=== PATIENT | female | born 1940 | race Two or more races ===

== ENCOUNTER 2020-01-12 10:05 | Emergency (ER) | payer OTHER ==
[~2020-01-12] VITALS: Ht 167.6 cm; Wt 86.2 kg
[~2020-01-12 10:05] MED LIST: AMOX-CLAV 875-1 EACH PO; CARTIA XT180 MG PO; CLONAZEPAM1 MG PO; DOCUSATE SODIU100 MG PO; FERROUS GL PO; GABAPENTIN800 MG PO; GLUCOPHAGE XR500 MG PO; HUMALOG100 U/ML SQ; K-TAB10 MEQ PO; LANTUS SOLOSTAR3 ML SQ; LISINOPRIL40 MG PO; MAGNESIUM200 MG PO; NEURONTIN300 MG PO; NEXIUM 24HR20 M1 PO; PERCOCET 5-3251 EACH PO; PLAVIX75 MG PO; PRAVASTATIN SOD10 MG PO; [UNRECOGNIZED DRUG - OTHER] PO
== END 2020-01-12 16:40 | disposition home or self-care (01) ==
LOC: ER 10:05
DX: R53.1 Weakness (principal); M25.512 Pain in left shoulder; M25.511 Pain in right shoulder; M25.552 Pain in left hip; M25.551 Pain in right hip

== ENCOUNTER 2020-01-16 11:48 | Outpatient (CLI) | payer OTHER | END 2020-01-16 12:33 | disposition home or self-care (01) | LOC: RAD 11:48 | PROVIDERS: ATTEND Internal Medicine | DX: M15.0 Primary generalized (osteo)arthritis (principal) ==

== ENCOUNTER → 2020-01-29 | Outpatient (CLI) | payer OTHER | END | disposition home or self-care (01) | LOC: MRI 09:48 | PROVIDERS: ATTEND Physical Medicine & Rehabilitation | DX: M75.112 Incomplete rotator cuff tear or rupture of left shoulder, not specified as traumatic (principal); M75.111 Incomplete rotator cuff tear or rupture of right shoulder, not specified as traumatic | CPT/HCPCS: 73221 ==

== ENCOUNTER → 2020-02-29 | Outpatient (CLI) | payer OTHER | END | disposition home or self-care (01) | LOC: RAD 11:45 | PROVIDERS: ATTEND Physical Medicine & Rehabilitation | DX: M54.2 Cervicalgia (principal); M17.0 Bilateral primary osteoarthritis of knee; M16.0 Bilateral primary osteoarthritis of hip ==

== ENCOUNTER 2020-05-08 12:37 | Outpatient (CLI) | payer OTHER | END 2020-05-08 12:50 | disposition home or self-care (01) | LOC: MAMO-SONO 12:37 | PROVIDERS: ATTEND Surgery | DX: D24.2 Benign neoplasm of left breast (principal); D24.1 Benign neoplasm of right breast; Z12.31 Encounter for screening mammogram for malignant neoplasm of breast; N60.11 Diffuse cystic mastopathy of right breast; N60.12 Diffuse cystic mastopathy of left breast; S99.829A Other specified injuries of unspecified foot, initial encounter ==

== ENCOUNTER 2021-06-09 12:51 | Outpatient (CLI) | payer OTHER | END 2021-06-09 12:58 | disposition home or self-care (01) | LOC: SONOGRAMA 12:51 | DX: M72.2 Plantar fascial fibromatosis (principal); M19.90 Unspecified osteoarthritis, unspecified site ==

== ENCOUNTER 2021-12-31 15:05 | Outpatient (CLI) | payer OTHER | END 2021-12-31 15:09 | disposition home or self-care (01) | LOC: RAD 15:05 | PROVIDERS: ATTEND Internal Medicine | DX: J44.1 Chronic obstructive pulmonary disease with (acute) exacerbation (principal) ==

== ENCOUNTER 2022-02-09 07:07 | Outpatient (CLI) | payer OTHER | END 2022-02-09 07:08 | disposition home or self-care (01) | LOC: NUCLEAR 07:07 | PROVIDERS: ATTEND Internal Medicine Cardiovascular Disease | DX: I20.8 Other forms of angina pectoris (principal); E78.00 Pure hypercholesterolemia, unspecified; E11.9 Type 2 diabetes mellitus without complications; Z88.6 Allergy status to analgesic agent | CPT/HCPCS: 78452; 93017; A9500; J1250 ==

== ENCOUNTER → 2024-02-14 07:18 | Outpatient (CLI) | payer OTHER | END | disposition home or self-care (01) | LOC: NUCLEAR 07:00 | PROVIDERS: ATTEND Internal Medicine Cardiovascular Disease | DX: I20.89 Other forms of angina pectoris (principal) | CPT/HCPCS: 78452; 93017; A9500; J1250 ==

== ENCOUNTER → 2024-06-28 11:35 | Outpatient (CLI) | payer OTHER ==
[~2024-06-28 11:35] MED LIST changes: +ALDACTONE50 MG PO; +CLARITIN10 M1 PO; +GLUMETZA500 MG PO; +PRAVASTATIN SOD40 MG PO
== END | disposition home or self-care (01) ==
LOC: EKG 11:35
PROVIDERS: ATTEND Internal Medicine
DX: I10 Essential (primary) hypertension (principal)

== ENCOUNTER 2024-06-28 14:46 | Inpatient (IN) | payer OTHER ==
[~2024-06-28] VITALS: Ht 160 cm; Wt 86.2 kg
[~2024-06-28 14:46] MED LIST changes: -ALDACTONE50 MG PO; -CLARITIN10 M1 PO; -GLUMETZA500 MG PO; -PRAVASTATIN SOD40 MG PO
[2024-06-28 14:54] VITALS: BP 104/68
[2024-06-28] MEDS ORDERED: GLUMETZA500 MG PO (15:00)
[2024-06-28] MEDS ORDERED: PRAVASTATIN SOD40 MG PO (15:00)
[2024-06-28] MEDS ORDERED: ALDACTONE50 MG PO (15:00)
[2024-06-28] MEDS ORDERED: CLARITIN10 M1 PO (15:01)
[2024-06-28 15:14] LABS: RH POSITIVE
[2024-07-03] MEDS ORDERED: TRANEXAMIC ACID 100MG/1ML (1000MG) AMPUL IV ONE (10:21)
[2024-07-03] MEDS ORDERED: CEFAZOLIN SODIUM 1,000 MG VIAL ONE (10:21)
[2024-07-03] MEDS ORDERED: KETOROLAC TROMETHAMINE 60 MG VIAL IM ONE (11:14)
[2024-07-03] MEDS ORDERED: GENTAMICIN SULFATE 40 MG/ML VIAL IV SCH (12:52)
[2024-07-03] MEDS ORDERED: ONDANSETRON HCL 2 MG/ML VIAL IV PRN (13:00)
[2024-07-03] MEDS ORDERED: SODIUM CHLORIDE 0.45 % 1,000 ML IV SCH (13:00)
[2024-07-03] MEDS ORDERED: MORPHINE SULFATE 4 MG/ML CARTRIDGE IV PRN (13:00)
[2024-07-03] MEDS ORDERED: MORPHINE SULFATE 2 MG/ML CARTRIDGE IV ONE ×4 (13:00→14:15)
[2024-07-03] MEDS ORDERED: HYDRALAZINE HCL10 MG (13:23)
[2024-07-03 14:00] LABS: HEMATOCRIT 33.1 % (36.0-45.00); HEMOGLOBIN 10.6 g/dL (12.0-15.00); RED BLOOD COUNT 3.88 M/uL (4.00-6.00)
[2024-07-03] MEDS ORDERED: MetFORMIN HCL 500 MG TABLET PO SCH (17:00)
[2024-07-03] MEDS ORDERED: hydrALAZINE HCL 10 MG TABLET PO SCH (17:00)
[2024-07-03 17:37] VITALS: BP 104/68; O2SAT 89
[2024-07-03] MEDS ORDERED: CEFAZOLIN SODIUM 1,000 MG VIAL IV SCH (18:00)
[2024-07-04 00:35] VITALS: BP 96/57; O2SAT 95
[2024-07-04 06:43] LABS: HEMATOCRIT 29.6 % (36.0-45.00); HEMOGLOBIN 9.7 g/dL (12.0-15.00); MEAN CELL VOLUME 85.6 fL (80.00-100.00); MEAN CORPUSCULAR HGB CONC 32.7 g/dl (32.0-36.0); PLATELET COUNT 300 K/uL (150-450); RED BLOOD COUNT 3.46 M/uL (4.00-6.00); RED CELL DISTRIBUTION WIDTH 14.9 % (11.5-14.5)
[2024-07-04 08:00] VITALS: BP 102/63; O2SAT 90
[2024-07-04] MEDS ORDERED: ACETAMINOPHEN WITH CODEINE 1 UDTAB TABLET PO PRN (08:15)
[2024-07-04] MEDS ORDERED: BACITRACIN 28.35 GM OINT.TUBE TOP SCH (09:00)
[2024-07-04] MEDS ORDERED: SENNA/DOCUSATE SODIUM 1 TAB TABLET PO SCH (09:00)
[2024-07-04] MEDS ORDERED: RIVAROXABAN 10 MG TAB PO SCH (09:00)
[2024-07-04] MEDS ORDERED: IRON FUM,PS/FOLIC/BCOMP,C NO.9 1 CAP CAPSULE PO SCH (09:00)
[2024-07-04] MEDS ORDERED: LISINOPRIL 40 MG TABLET PO SCH (09:00)
[2024-07-04] MEDS ORDERED: SPIRONOLACTONE 50 MG TABLET PO SCH (09:00)
[2024-07-04] MEDS ORDERED: DILTIAZEM HCL 180 MG CAP.SR.24H PO SCH (09:00)
[2024-07-04] MEDS ORDERED: SULFAMETHOXAZOLE/TRIMETHOPRIM DS 1 TAB PO SCH (09:00)
[2024-07-04 13:00] VITALS: BP 120/68; O2SAT 92
[2024-07-04 15:05] LABS: BILIRUBIN TOTAL 0.45 mg/dL (0.3-1.2); CALCIUM 9.1 mg/dL (8.5-10.1); CREATININE SERUM 1.09 mg/dL (0.55-1.02); GFR 48.05; GLOBULINA 2.9 G/DL (2.4-3.5); POTASSIUM 4.85 mEq/L (3.5-5.1); TOTAL PROTEIN 5.9 gm/dL (6.4-8.2)
[2024-07-04 22:37] VITALS: BP 115/74; O2SAT 96
[2024-07-04] MEDS ORDERED: INSULIN LISPRO 1,000 UNIT/10 ML UNITS SUBCUTANEO PRN (23:45)
[2024-07-04] MEDS ORDERED: DEXTROSE 50 % IN WATER 0.5 G/ML DISP.SYRIN IV PRN (23:45)
[2024-07-05 00:36] VITALS: BP 104/61; O2SAT 97
[2024-07-05] MEDS ORDERED: Septra Ds Tablet PO (06:14)
[2024-07-05] MEDS ORDERED: XARELTO10 MG PO (06:15)
[2024-07-05] MEDS ORDERED: INTEGRA PLUS C1 EACH PO (06:15)
[2024-07-05] MEDS ORDERED: ACETAMINOPHEN-1 EAC2 PO (06:16)
[2024-07-05 07:07] LABS: HEMATOCRIT 27.6 % (36.0-45.00); HEMOGLOBIN 9.2 g/dL (12.0-15.00); MEAN CELL VOLUME 83.6 fL (80.00-100.00); MEAN CORPUSCULAR HEMOGLOBIN 27.8 pg (27.00-32.0); MEAN CORPUSCULAR HGB CONC 33.3 g/dl (32.0-36.0); PLATELET COUNT 261 K/uL (150-450); RED CELL DISTRIBUTION WIDTH 14.7 % (11.5-14.5)
[2024-07-05 07:38] LABS: ALBUMIN 2.7 gm/dL (3.4-5.0); BILIRUBIN TOTAL 0.33 mg/dL (0.3-1.2); CALCIUM 8.6 mg/dL (8.5-10.1); CREATININE SERUM 0.8 mg/dL (0.55-1.02); GFR 68.67; GLOBULINA 2.8 G/DL (2.4-3.5); POTASSIUM 4.39 mEq/L (3.5-5.1); TOTAL PROTEIN 5.5 gm/dL (6.4-8.2)
[2024-07-05 08:00] VITALS: BP 167/70; O2SAT 96
[2024-07-05] MEDS ORDERED: ASPIRIN 81 MG TABLET.EC PO SCH (09:00)
[2024-07-05] MEDS ORDERED: GABAPENTIN 600 MG TABLET PO SCH (09:00)
[2024-07-05 13:00] VITALS: BP 122/60; O2SAT 97
== END 2024-07-05 15:11 | DRG 470 ==
LOC: O/R 07-03 06:43 → SURG 07-03 06:43 → SURH 07-03 08:15 → SURG 07-03 13:33
PROVIDERS: Internal Medicine; ADMIT Orthopaedic Surgery Sports Medicine; ATTEND Orthopaedic Surgery Sports Medicine
PROC: 0SRC0J9 Replacement of Right Knee Joint with Synthetic Substitute, Cemented, Open Approach (ICD-10-PCS; principal; 2024-07-03 10:30)
DX: M17.11 Unilateral primary osteoarthritis, right knee (principal); I10 Essential (primary) hypertension; E11.9 Type 2 diabetes mellitus without complications; Z79.4 Long term (current) use of insulin